=== PATIENT | male | born 1965 | race Caucasian/White ===

== ENCOUNTER 2017-07-30 00:40 | Emergency (ER) | payer BC ==
[~2017-07-30] VITALS: Ht 198.1 cm; Wt 131.5 kg
[2017-07-30] MEDS ORDERED: Amoxicillin500 MG PO (01:00)
[2017-07-30] MEDS ORDERED: NAPR550 PO (01:02)
== END 2017-07-30 01:12 | disposition home or self-care (01) ==
LOC: ER 00:40
DX: K04.7 Periapical abscess without sinus (principal); K02.9 Dental caries, unspecified; Z79.2 Long term (current) use of antibiotics
CPT/HCPCS: 99283

== ENCOUNTER 2020-03-08 15:06 | Emergency (ER) | payer BC, OTHER ==
[~2020-03-08] VITALS: Ht 198.1 cm; Wt 137.9 kg
[~2020-03-08 15:06] MED LIST: Amoxicillin500 MG PO; NAPR550 PO
[2020-03-08] MEDS ORDERED: DYAZIDE 37.5-21 EACH PO (15:16)
[2020-03-08] MEDS ORDERED: OMEPRAZOLE MAGN20 M1 PO (15:16)
== END 2020-03-08 20:28 | disposition short-term general hospital (02) ==
LOC: ER 15:06
DX: M54.5 Low back pain (principal); Z79.899 Other long term (current) drug therapy; Z11.59 Encounter for screening for other viral diseases
CPT/HCPCS: 96372-59; 99284-25; A9270-GY; J2270; J3010; U0002

== ENCOUNTER → 2021-05-28 | Outpatient (CLI) | payer BC ==
[~2021-05-28] MED LIST changes: +DYAZIDE 37.5-21 EACH PO; +OMEPRAZOLE MAGN20 M1 PO
[2021-05-28 10:29] LABS: BASOPHILS ABSOLUTE AUTO 0.05 K/mm3 (0.00-0.23); BASOPHILS PERCENT AUTO 1 % (0-2); EOSINOPHILS ABSOLUTE AUTO 0.04 K/mm3 (0.00-0.68); EOSINOPHILS PERCENT AUTO 1 % (0-6); Hematocrit 43.7 % (37.0-53.0); Hemoglobin 15.3 g/dL (13.5-17.5); Mean Corpuscular HGB 31.2 pg (26.0-34.0); Mean Corpuscular Volume 89 fL (80-100); Mean Platelet Volume 10.2 fL (9.1-12.4); Platelet Count 163 K/mm3 (150-400); RDW Coefficient Variation 12.1 % (11.7-14.2); RDW Standard Deviation 39.6 fL (35.1-46.3); Red Blood Cell Count 4.91 M/mm3 (4.30-5.90); White Blood Cell Count 6.76 K/mm3 (4.00-11.30)
[2021-05-28 10:47] LABS: IMMATURE GRAN ABSOLUTE AUTO 0.09 K/mm3 (0.00-0.10); IMMATURE GRAN PERCENT AUTO 1 % (0-1); LYMPHOCYTES ABSOLUTE AUTO 1.76 K/mm3 (0.84-5.20); LYMPHOCYTES PERCENT AUTO 26 % (21-46); MONOCYTES ABSOLUTE AUTO 0.05 K/mm3 (0.16-1.47); MONOCYTES PERCENT AUTO 1 % (4-13); NEUTROPHILS ABSOLUTE AUTO 4.77 K/mm3 (1.96-9.15); NEUTROPHILS PERCENT AUTO 71 % (41-73)
[2021-05-28 10:52] LABS: Albumin, Blood 3.6 g/dL (3.4-5.0); Albumin/Globulin Ratio 0.9 (0.8-1.8); Bilirubin, Total 0.6 mg/dL (0.1-1.0); Bun/Creatinine Ratio 18.8 (12.0-20.0); Calcium, Blood 9.4 mg/dL (8.5-10.1); Creatinine, Blood 1.76 mg/dL (0.60-1.20); Globulin, Blood 4.2 g/dL (2.2-4.0); Potassium, Blood 3.9 mmol/L (3.5-5.5); Total Protein, Blood 7.8 g/dL (6.4-8.2)
== END | disposition home or self-care (01) ==
LOC: LAB 10:06 → LAB SHORT 10:06
PROVIDERS: Internal Medicine Hematology & Oncology
DX: C77.2 Secondary and unspecified malignant neoplasm of intra-abdominal lymph nodes (principal); C62.90 Malignant neoplasm of unspecified testis, unspecified whether descended or undescended
CPT/HCPCS: 80053; 85025

== ENCOUNTER 2021-10-09 06:42 | Day surgery (SDC) | payer OTHER ==
[~2021-10-09] VITALS: Ht 198.1 cm; Wt 140.9 kg
== END 2021-10-09 08:45 | disposition home or self-care (01) ==
LOC: ORSCSDS 06:42
PROVIDERS: Student in an Organized Health Care Education/Training Program
PROC: 0DB98ZX Excision of Duodenum, Via Natural or Artificial Opening Endoscopic, Diagnostic (ICD-10-PCS; principal; 2021-10-09 08:00)
PROC: 0DB58ZX Excision of Esophagus, Via Natural or Artificial Opening Endoscopic, Diagnostic (ICD-10-PCS; principal; 2021-10-09 08:00)
DX: K22.70 Barrett's esophagus without dysplasia (principal); K31.7 Polyp of stomach and duodenum; K31.89 Other diseases of stomach and duodenum
CPT/HCPCS: 88305; J2704; J7120

== ENCOUNTER 2022-07-12 06:02 | Day surgery (SDC) | payer OTHER ==
[~2022-07-12] VITALS: Ht 198.1 cm; Wt 141.6 kg
--- NOTE | 2022-07-12 07:18 | NUR ---
Ambulatory in Day Surgery. Surgical site prepped with 2% Chlorhexidine cloth wipe. History, Chart, Medications and Allergies reviewed before start of procedure. Lungs clear T/O to Auscultation. Patient confirms NPO status and agrees with scheduled surgery. Patient States Post-Procedure ride home has been arranged WITH .
--- NOTE | 2022-07-12 11:42 | NUR ---
Dressing to procedure site clean, dry, intact with no visible drainage, swelling, erythema or bruising noted. SMALL RASH AROUND INCISION SITE WITH STERI STRIPS, NO CHANGES FROM PACU ASSESSMENT
--- NOTE | 2022-07-12 12:50 | NUR ---
Dressing to procedure site clean, dry, intact with no visible drainage, swelling, erythema or bruising noted. Discharge instructions reviewed with patient. Patient verbalizes understanding. Copy given to patient to take home. Binder applied to abd. Discharged via wheelchair to private car for ride home.
== END 2022-07-12 12:53 | disposition home or self-care (01) ==
LOC: ORSCMMR 06:02 → ORD 07:30 → ORSCMMR 12:53
PROVIDERS: Surgery
PROC: 0WUF4JZ Supplement Abdominal Wall with Synthetic Substitute, Percutaneous Endoscopic Approach (ICD-10-PCS; principal; 2022-07-12 07:30)
PROC: 8E0W4CZ Robotic Assisted Procedure of Trunk Region, Percutaneous Endoscopic Approach (ICD-10-PCS; principal; 2022-07-12 07:30)
DX: K42.0 Umbilical hernia with obstruction, without gangrene (principal); K66.0 Peritoneal adhesions (postprocedural) (postinfection); K22.70 Barrett's esophagus without dysplasia; K21.9 Gastro-esophageal reflux disease without esophagitis; E66.9 Obesity, unspecified; Z68.36 Body mass index [BMI] 36.0-36.9, adult
CPT/HCPCS: 49653; S2900; A9270; C1781; J0690; J1100; J2250; J2370; J2405; J2704; J2765; J2795; J3010; J7120

== ENCOUNTER 2024-08-11 06:46 | Day surgery (SDC) | payer OTHER ==
[~2024-08-11] VITALS: Ht 198.1 cm; Wt 333.0 kg
[2024-08-11] MEDS ORDERED: propofoL 50 ML IV ONE (07:35)
[2024-08-11] MEDS ORDERED: Lactated Ringer's 1,000 ML IV ONE ×2 (07:35→07:46)
--- NOTE | 2024-08-11 08:35 | NUR ---
08/11/24 0835 BISHNU CAIN TOOK REPORT FROM RACHELL BETANCOURT. SHE LISTENED TO LUNGS AND HAD GIVEN PT DRINK PRIOR TO ME ENTERING THE ROOM. PT AND EMBER IN ROOM AT THIS TIME. DR LUX' IN SPEAKING WITH PATIENT/ REGARDING SCOPE AND BIOPSIES.
[2024-08-11 08:37] VITALS: BP 138/99
== END 2024-08-11 08:45 | disposition home or self-care (01) ==
LOC: ORSCSDS 06:46
PROVIDERS: Internal Medicine Gastroenterology
PROC: 0DB68ZX Excision of Stomach, Via Natural or Artificial Opening Endoscopic, Diagnostic (ICD-10-PCS; principal; 2024-08-11 08:00)
PROC: 0DB58ZX Excision of Esophagus, Via Natural or Artificial Opening Endoscopic, Diagnostic (ICD-10-PCS; principal; 2024-08-11 08:00)
DX: K22.70 Barrett's esophagus without dysplasia (principal); K31.7 Polyp of stomach and duodenum; K76.0 Fatty (change of) liver, not elsewhere classified; Z85.528 Personal history of other malignant neoplasm of kidney; Z79.899 Other long term (current) drug therapy
CPT/HCPCS: 88305; J2704; J7120